=== PATIENT | male | born 1985 | race Two or more races ===

== ENCOUNTER 2018-02-10 11:35 | Emergency (ER) | payer OTHER ==
[~2018-02-10] VITALS: Ht 170.2 cm; Wt 117.2 kg
[2018-02-10 15:32] VITALS: BP 138/80
== END 2018-02-10 15:32 | disposition home or self-care (01) ==
LOC: ED 11:35
DX: S39.012A Strain of muscle, fascia and tendon of lower back, initial encounter (principal); I10 Essential (primary) hypertension; Y93.89 Activity, other specified; Y92.89 Other specified places as the place of occurrence of the external cause; Y99.8 Other external cause status